=== PATIENT | male | born 1975 | race Caucasian/White ===

== ENCOUNTER 2016-12-17 08:55 | Day surgery (SDC) | payer OTHER ==
[2016-12-17] MEDS ORDERED: LR 1,000 ML IV ONE (09:32)
--- NOTE | 2016-12-17 10:26 | PDANEPAE ---
ANE History of Present Illness EGD, colonoscopy ANE Past Medical History - Cardiovascular History Hx Hypertension: Yes Hx Arrhythmias: No Hx Chest Pain: No Hx Coronary Artery / Peripheral Vascular Disease: No Hx CHF / Valvular Disease: No Hx Palpitations: No - Pulmonary History Hx COPD: No Hx Asthma/Reactive Airway Disease: Yes Hx Recent Upper Respiratory Infection: No Hx Oxygen in Use at Home: No Hx Sleep Apnea: No Sleep Apnea Screening Result - Last Documented: Negative Pulmonary History Comment: asthma, uses inhaler about every other day - Neurologic History Hx Cerebrovascular Accident: No Hx Seizures: No Hx Dementia: No - Endocrine History Hx Diabetes: No Hypothyroid: No Obesity: severe - Renal History Hx Renal Disorders: No - Liver History Hx Hepatic Disorders: No - Neurological & Psychiatric Hx Hx Neurological and Psychiatric Disorders: Yes Neurological / Psychiatric History Comment: depression,anxiety - Cancer History Hx Cancer: No - Congenital Disorder History Hx Congenital Disorders: No - GI History GERD: severe Hx Gastrointestinal Disorders: Yes Gastrointestinal History Comment: IBS, bloating, cramping. - Other Health History Other Health History: none - Chronic Pain History Chronic Pain: No - Surgical History Prior Surgeries: hernia repairs 2014 ANE Review of Systems Review of Systems: - Exercise capacity METS (RN): 4 METS ANE Patient History - Allergies Allergies/Adverse Reactions: No Known Allergies Allergy (Verified 12/13/16 17:15) - Home Medications Home Medications: Losartan Potassium 12/13/16 [Last Taken 12/16/16] Metoprolol Tartrate 12/13/16 [Last Taken 12/17/16] Omeprazole 12/13/16 [Last Taken Unknown] - NPO status NPO Since - Liquids (Date): 12/16/16 NPO Since - Solids (Date): 12/16/16 - Anes Hx Anes Hx: no prior problems - Smoking Hx Smoking Status: Former smoker (stopped 16 years ago) - Alcohol Use Alcohol Use: Heavy (6 pack of beer/day) - Family Anes Hx Family Hx Anesthesia Complications: none ANE Labs/Vital Signs - Vital Signs Blood Pressure: 141/98 Heart Rate: 96 Respiratory Rate: 18 O2 Sat (%): 97 Height: 180.34 cm Weight: 120.202 kg ANE Physical Exam - Airway Neck exam: FROM Mallampati Score: Class 3 Mouth exam: normal dental/mouth exam - Pulmonary Pulmonary: clear to auscultation - Cardiovascular Cardiovascular: regular rate and rhythym
--- NOTE | 2016-12-17 10:26 | PDGENHP ---
History & Physical Chief Complaint: heartburn and change in bowel habits Relevant Physical Exam: GEN: NAD. Cardiac: RRR. Lungs: CTA B. Abd: Soft, nt, nd
--- NOTE | 2016-12-17 10:26 | PDGENHP ---
History & Physical Chief Complaint: heartburn and change in bowel habits Relevant Physical Exam: GEN: NAD. Cardiac: RRR. Lungs: CTA B. Abd: Soft, nt, nd
--- NOTE | 2016-12-17 10:26 | PDGENHP ---
History & Physical Chief Complaint: heartburn and change in bowel habits Relevant Physical Exam: GEN: NAD. Cardiac: RRR. Lungs: CTA B. Abd: Soft, nt, nd
[2016-12-17] MEDS ORDERED: MIDAZOLAM 2 MG/2 ML VIAL IVP ONE (10:31)
[2016-12-17] MEDS ORDERED: MIDAZOLAM 2 MG/2 ML VIAL ONE (10:33)
[2016-12-17] MEDS ORDERED: PROPOFOL 200 MG/20 ML VIAL ONE ×2 (10:34)
[2016-12-17] MEDS ORDERED: PROPOFOL/EMULSION 500 MG/50 ML BOTTLE IV ONE (10:50)
--- NOTE | 2016-12-17 11:15 | GIREPORT ---
[facility] Surgical Services - Endoscopy Department Patient Name: Julio Cesar Badillo Procedure Date: 12/17/2016 10:27 AM Patient Type: Outpatient Attending MD/ ER Physician: Dario Wylie MD Procedure: Upper GI endoscopy Indications: Heartburn, Nausea with vomiting Providers: Dario Wylie MD Medicines: Monitored Anesthesia Care Complications: No immediate complications. Description of Procedure: After obtaining informed consent, the endoscope was passed under direct vision. Throughout the procedure, the patient's blood pressure, pulse, and oxygen saturations were monitored continuously. The Endoscope was intro duced through the mouth, and advanced to the second part of duodenum. The [facility] er GI endoscopy was accomplished without difficulty. The patient tolerated th e procedure well. Findings: The examined esophagus was normal. The Z-line was regular and was found 44 cm from the incisors. Localized mild inflammation characterized by erosions, erythema and friability was found in the gastric antrum. Biopsies were taken with a cold forceps for histology. Verification of patient identification for the specimen was done by the physician and nurse using the patient's name a nd date. Estimated blood loss was minimal. The examined duodenum was normal. Biopsies were taken with a cold force ps for histology. Verification of patient identification for the specimen was done by the physician and nurse using the patient's name and date . Estimated blood loss was minimal. Estimated Blood Loss: Estimated blood loss: none. Post Op Diagnosis: - Normal esophagus. - Z-line regular, 44 cm from the incisors. - Gastritis. Biopsied. - Normal examined duodenum. Biopsied. Recommendation: - Discharge patient to home (with escort) after the colonoscopy is comp leted. - Resume previous diet. - Continue present medications. - Await pathology results. Results are available within 10 days. - Thank you for allowing me to participate in the care of your patient. Attending Participation: I personally performed the entire procedure. Dario Wylie MD Dario Wylie MD 12/17/2016 11:15:06 AM This report has been signed electronicallyDarashaun Wylie MD Number of Addenda: 0 Note Initiated On: 12/17/2016 10:27 AM Total Procedure Duration Time 0 hours 6 minutes 38 seconds [email or web address]}
--- NOTE | 2016-12-17 11:15 | GIREPORT ---
[facility] Surgical Services - Endoscopy Department Patient Name: Julio Cesar Badillo Procedure Date: 12/17/2016 10:27 AM Patient Type: Outpatient Attending MD/ ER Physician: Dario Wylie MD Procedure: Upper GI endoscopy Indications: Heartburn, Nausea with vomiting Providers: Dario Wylie MD Medicines: Monitored Anesthesia Care Complications: No immediate complications. Description of Procedure: After obtaining informed consent, the endoscope was passed under direct vision. Throughout the procedure, the patient's blood pressure, pulse, and oxygen saturations were monitored continuously. The Endoscope was intro duced through the mouth, and advanced to the second part of duodenum. The [facility] er GI endoscopy was accomplished without difficulty. The patient tolerated th e procedure well. Findings: The examined esophagus was normal. The Z-line was regular and was found 44 cm from the incisors. Localized mild inflammation characterized by erosions, erythema and friability was found in the gastric antrum. Biopsies were taken with a cold forceps for histology. Verification of patient identification for the specimen was done by the physician and nurse using the patient's name a nd date. Estimated blood loss was minimal. The examined duodenum was normal. Biopsies were taken with a cold force ps for histology. Verification of patient identification for the specimen was done by the physician and nurse using the patient's name and date . Estimated blood loss was minimal. Estimated Blood Loss: Estimated blood loss: none. Post Op Diagnosis: - Normal esophagus. - Z-line regular, 44 cm from the incisors. - Gastritis. Biopsied. - Normal examined duodenum. Biopsied. Recommendation: - Discharge patient to home (with escort) after the colonoscopy is comp leted. - Resume previous diet. - Continue present medications. - Await pathology results. Results are available within 10 days. - Thank you for allowing me to participate in the care of your patient. Attending Participation: I personally performed the entire procedure. Dario Wylie MD Dario Wylie MD 12/17/2016 11:15:06 AM This report has been signed electronicallyDarashaun Wylie MD Number of Addenda: 0 Note Initiated On: 12/17/2016 10:27 AM Total Procedure Duration Time 0 hours 6 minutes 38 seconds [email or web address]}
--- NOTE | 2016-12-17 11:15 | GIREPORT ---
[facility] Surgical Services - Endoscopy Department Patient Name: Julio Cesar Badillo Procedure Date: 12/17/2016 10:27 AM Patient Type: Outpatient Attending MD/ ER Physician: Dario Wylie MD Procedure: Upper GI endoscopy Indications: Heartburn, Nausea with vomiting Providers: Dario Wylie MD Medicines: Monitored Anesthesia Care Complications: No immediate complications. Description of Procedure: After obtaining informed consent, the endoscope was passed under direct vision. Throughout the procedure, the patient's blood pressure, pulse, and oxygen saturations were monitored continuously. The Endoscope was intro duced through the mouth, and advanced to the second part of duodenum. The [facility] er GI endoscopy was accomplished without difficulty. The patient tolerated th e procedure well. Findings: The examined esophagus was normal. The Z-line was regular and was found 44 cm from the incisors. Localized mild inflammation characterized by erosions, erythema and friability was found in the gastric antrum. Biopsies were taken with a cold forceps for histology. Verification of patient identification for the specimen was done by the physician and nurse using the patient's name a nd date. Estimated blood loss was minimal. The examined duodenum was normal. Biopsies were taken with a cold force ps for histology. Verification of patient identification for the specimen was done by the physician and nurse using the patient's name and date . Estimated blood loss was minimal. Estimated Blood Loss: Estimated blood loss: none. Post Op Diagnosis: - Normal esophagus. - Z-line regular, 44 cm from the incisors. - Gastritis. Biopsied. - Normal examined duodenum. Biopsied. Recommendation: - Discharge patient to home (with escort) after the colonoscopy is comp leted. - Resume previous diet. - Continue present medications. - Await pathology results. Results are available within 10 days. - Thank you for allowing me to participate in the care of your patient. Attending Participation: I personally performed the entire procedure. Dario Wylie MD Dario Wylie MD 12/17/2016 11:15:06 AM This report has been signed electronicallyDarashaun Wylie MD Number of Addenda: 0 Note Initiated On: 12/17/2016 10:27 AM Total Procedure Duration Time 0 hours 6 minutes 38 seconds [email or web address]}
--- NOTE | 2016-12-17 11:20 | GIREPORT ---
[facility] Surgical Services - Endoscopy Department Patient Name: Julio Cesar Badillo Procedure Date: 12/17/2016 10:50 AM Patient Type: Outpatient Attending MD/ ER Physician: Dario Wylie MD Procedure: Colonoscopy Indications: Chronic diarrhea, Change in bowel habits, Constipation Providers: Dario Wylie MD Medicines: Monitored Anesthesia Care Complications: No immediate complications. Description of Procedure: After obtaining informed consent, the scope was passed under direct vis ion. Throughout the procedure, the patient's blood pressure, pulse, and oxyg en saturations were monitored continuously. The Colonoscope with irrigatio n channel was introduced through the anus and advanced to the cecum, identified by appendiceal orifice and ileocecal valve. The colonoscopy was performed without difficulty. The patient tolerated the procedure well. The quality of the bowel preparation was good. Findings: The perianal and digital rectal examinations were normal. The terminal ileum appeared normal. A 6 mm polyp was found in the ascending colon. The polyp was pedunculat ed. The polyp was removed with a hot snare. Resection and retrieval were complete. Verification of patient identification for the specimen was d one by the physician and nurse using the patient's name and date. Estimated blood loss was minimal. Two sessile polyps were found in the sigmoid colon. The polyps were 6 t o 10 mm in size. These polyps were removed with a hot snare. Resection and retrieval were complete. Verification of patient identification for the specimen was done by the physician and nurse using the patient's name a nd date. Estimated blood loss was minimal. A 4 mm polyp was found in the rectum. The polyp was sessile. The polyp was removed with a cold snare. Resection and retrieval were complete. Verification of patient identification for the specimen was done by the physician and nurse using the patient's name and date. Estimated blood loss was minimal. The colon (entire examined portion) appeared normal. Biopsies for histo logy were taken with a cold forceps from the entire colon for evaluation of microscopic colitis. Verification of patient identification for the spe cimen was done by the physician and nurse using the patient's name and date. Estimated blood loss was minimal. The retroflexed view of the distal rectum and anal verge was normal and showed no anal or rectal abnormalities. Estimated Blood Loss: Estimated blood loss: none. Post Op Diagnosis: - The examined portion of the ileum was normal. - One 6 mm polyp in the ascending colon, removed with a hot snare. Rese cted and retrieved. - Two 6 to 10 mm polyps in the sigmoid colon, removed with a hot snare. Resected and retrieved. - One 4 mm polyp in the rectum, removed with a cold snare. Resected and retrieved. - The entire examined colon is normal. Biopsied. - The distal rectum and anal verge are normal on retroflexion view. Recommendation: - Discharge patient to home (with escort). - Resume previous diet. - Continue present medications. - Repeat colonoscopy date to be determined after pending pathology resu lts are reviewed for surveillance based on pathology results. If the larger 10mm polyp is the sigmoid colon is found to be adenomatous, a repeat colonos copy in 3 years is recommended. - Your pathology results are available within 10 days. - Thank you for allowing me to participate in the care of your patient. Attending Participation: I personally performed the entire procedure. Dario Wylie MD Dario Wylie MD 12/17/2016 11:20:19 AM This report has been signed electronicallyDarashaun Wylie MD Number of Addenda: 0 Note Initiated On: 12/17/2016 10:50 AM Total Procedure Duration Time 0 hours 17 minutes 33 seconds [email or web address]}
[2016-12-17 11:31] VITALS: PULSE 100
[2016-12-17 11:45] VITALS: RESP 14; TEMP 97.7
[2016-12-17] MEDS ORDERED: fentaNYL 100 MCG/2 ML INJ IVP PRN (11:52)
[2016-12-17] MEDS ORDERED: NALOXONE HCL 0.4 MG/ML INJ IVP PRN (11:52)
[2016-12-17 11:53] VITALS: BP 147/102
--- NOTE | 2016-12-17 12:14 | POSTANESTH ---
Post Anesthetic Evaluation Cardiovascular Status: Similar to Pre-Op Cond Respiratory Status: Similar to Pre-op Cond. Level of Consciousness/Mental Status: Can Participate in Eval Pain Control: Adequate, Prn Tx Ordered Nausea/Vomiting Control: Adequate, Prn Tx Ordered Complications Possibly Related to Anesthesia: None Noted
[2016-12-17 12:18] VITALS: O2SAT 99
== END 2016-12-17 12:18 | disposition home or self-care (01) ==
LOC: FSGY 08:55
PROVIDERS: ATTEND Internal Medicine Gastroenterology
PROC: 0DBE8ZX Excision of Large Intestine, Via Natural or Artificial Opening Endoscopic, Diagnostic (ICD-10-PCS; principal; 2016-12-17 10:15)
PROC: 0DBK8ZX Excision of Ascending Colon, Via Natural or Artificial Opening Endoscopic, Diagnostic (ICD-10-PCS; principal; 2016-12-17 10:15)
PROC: 0DBN8ZX Excision of Sigmoid Colon, Via Natural or Artificial Opening Endoscopic, Diagnostic (ICD-10-PCS; principal; 2016-12-17 10:15)
PROC: 0DBP8ZX Excision of Rectum, Via Natural or Artificial Opening Endoscopic, Diagnostic (ICD-10-PCS; principal; 2016-12-17 10:15)
PROC: 0DB68ZX Excision of Stomach, Via Natural or Artificial Opening Endoscopic, Diagnostic (ICD-10-PCS; principal; 2016-12-17 10:15)
DX: D12.2 Benign neoplasm of ascending colon (principal); D12.5 Benign neoplasm of sigmoid colon; D12.8 Benign neoplasm of rectum; K29.70 Gastritis, unspecified, without bleeding; K21.9 Gastro-esophageal reflux disease without esophagitis; R19.4 Change in bowel habit; I10 Essential (primary) hypertension; E66.01 Morbid (severe) obesity due to excess calories
CPT/HCPCS: J2250; J2704

== ENCOUNTER → 2018-05-28 | Outpatient (CLI) | payer OTHER | LOC: SUPIMAGING 14:43 → EDSTATUS 16:05 | PROVIDERS: ATTEND Family Medicine | DX: M17.11 Unilateral primary osteoarthritis, right knee (principal) | CPT/HCPCS: 73562-PN ==